=== PATIENT | female | born 1970 | race Caucasian/White ===

== ENCOUNTER 2019-03-31 17:04 | Emergency (ER) | payer BC ==
[~2019-03-31] VITALS: Ht 165.1 cm; Wt 109.1 kg
[2019-03-31] MEDS ORDERED: GABA-843 PO (17:25)
[2019-03-31] MEDS ORDERED: METH-444 PO (17:25)
[2019-03-31] MEDS ORDERED: BASA100I SC (17:25)
[2019-03-31] MEDS ORDERED: HUMA100I3 SC (17:25)
[2019-03-31] MEDS ORDERED: LOSA25TA14 PO (17:25)
[2019-03-31] MEDS ORDERED: OMEP-218 PO (17:25)
[2019-03-31] MEDS ORDERED: ONDA-83 PO (17:26)
[2019-03-31 18:11] LABS: BASO # 0.1 10^3/uL (0.0-0.2); BASO % 0.5 % (0.0-1.0); EOS # 0.2 10^3/uL (0.0-0.5); EOS % 1.8 % (0.0-3.0); HEMATOCRIT 47.5 % (36.0-47.0); HEMOGLOBIN 16.6 g/dl (12.0-15.5); LYMPH # 2.3 10^3/uL (1.5-5.0); LYMPH % 23.9 % (24.0-44.0); MEAN CORPUSCULAR HEMOGLOBIN 30.3 pg (27.0-33.0); MEAN CORPUSCULAR HGB CONC 34.9 g/dl (32.0-36.5); MEAN CORPUSCULAR VOLUME 86.7 fl (80.0-96.0); MONO # 0.6 10^3/uL (0.0-0.8); MONO % 5.9 % (0.0-5.0); NEUTROPHILS # 6.5 10^3/uL (1.5-8.5); NEUTROPHILS % 67.2 % (36.0-66.0); PLATELET COUNT, AUTOMATED 267 10^3/uL (150-450); RED BLOOD COUNT 5.48 10^6/uL (4.00-5.40); WHITE BLOOD COUNT 9.7 10^3/uL (4.0-10.0)
[2019-03-31] MEDS ORDERED: MECLIZINE 25 MG TABLET PO ONE (18:15)
[2019-03-31] MEDS ORDERED: NS 1,000 ML IV ONE (18:15)
--- NOTE | 2019-03-31 18:19 | REP ---
Clinical: Chest pain . Comparison: None . Findings: The mediastinum and cardiac silhouette are stable and within normal limits for portable technique. The lung altman are clear without acute consolidation, effusion, or pneumothorax. Skeletal structures are intact. Impression: No acute cardiopulmonary process appreciated. Electronically Signed by Mat Clay MD 03/31/2019 06:10 P
[2019-03-31 18:23] LABS: ALBUMIN 3.8 GM/DL (3.2-5.2); ALT/SGPT 32 U/L (12-78); BILIRUBIN,DIRECT < 0.1 MG/DL (0.0-0.2); BILIRUBIN,TOTAL 0.3 MG/DL (0.2-1.0); BLOOD UREA NITROGEN 11 MG/DL (7-18); CALCIUM LEVEL 9.4 MG/DL (8.5-10.1); CARBON DIOXIDE LEVEL 26 MEQ/L (21-32); CHLORIDE LEVEL 101 MEQ/L (98-107); CK-MB VALUE MASS 1.4 NG/ML (<3.6); CPK CREATINE PHOSPHOKINASE 112 U/L (26-192); CREATININE FOR GFR 0.72 MG/DL (0.55-1.30); GLOMERULAR FILTRATION RATE > 60.0 (>51); GLUCOSE, FASTING 230 MG/DL (70-100); MB/CK RELATIVE INDEX 1.25 (< OR =4); POTASSIUM SERUM 3.8 MEQ/L (3.5-5.1); SODIUM LEVEL 135 MEQ/L (136-145); TOTAL PROTEIN 7.2 GM/DL (6.4-8.2); TROPONIN I < 0.02 NG/ML (< 0.10)
[2019-03-31 19:05] VITALS: BP 117/81
[2019-03-31] MEDS ORDERED: methylPREDNISolone INJ 125 MG/2 ML VIAL (J2930) IV ONE (21:30)
[2019-03-31 23:17] LABS: CK-MB VALUE MASS 1.3 NG/ML (<3.6); CPK CREATINE PHOSPHOKINASE 112 U/L (26-192); MB/CK RELATIVE INDEX 1.16 (< OR =4); TROPONIN I < 0.02 NG/ML (< 0.10)
[2019-03-31] MEDS ORDERED: PRED10TA2 PO (23:26)
--- NOTE | 2019-04-01 20:17 | ECGEPIP ---
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
--- NOTE | 2019-04-01 20:19 | ECGEPIP ---
[facility] - ED Test Date: 2019-03-31 Pat Name: KIRSTIE GORMAN Department: Room: - Gender: Female Medical Biller: er : 1970 Requested By: WESLEY ROJAS Order Number: [id number] Reading MD: Liz Knowles Measurements Intervals [place] Rate: 71 P: 28 VA: 154 QRS: 67 QRSD: 100 T: 92 QT: 353 QTc: 385 Interpretive Statements SINUS RHYTHM NSTTW abnormalities DECREASED RATE 03/31/19 Electronically Signed on 04-01-2019 20:19:08 EST by Liz Knowles
== END 2019-03-31 23:40 | disposition home or self-care (01) ==
LOC: EDBD 17:04 → M ED 17:04
DX: R42 Dizziness and giddiness (principal); R07.89 Other chest pain; E11.9 Type 2 diabetes mellitus without complications; I10 Essential (primary) hypertension; K21.9 Gastro-esophageal reflux disease without esophagitis; N20.0 Calculus of kidney; Z90.49 Acquired absence of other specified parts of digestive tract; F17.200 Nicotine dependence, unspecified, uncomplicated; Z88.2 Allergy status to sulfonamides; Z79.4 Long term (current) use of insulin; Z79.899 Other long term (current) drug therapy
CPT/HCPCS: 71045; 80048; 80076; 82550; 82553; 84443; 85025; 93005; 93041; 94760; 96361; 96374; 99285; J2930